=== PATIENT | female | born 1945 | race Caucasian/White ===

== ENCOUNTER 2018-07-11 16:52 | Outpatient (CLI) | payer MEDICARE, SELFPAY ==
[2018-07-11 17:25] LABS: Abs Immature Grans 0.01 k/cumm (0.0-0.09); Absolute Basophil Count 0.04 k/cumm (0.0-0.2); Absolute Lymphocyte Count 2.94 k/cumm (1.2-3.4); Absolute Monocyte Count 0.78 k/cumm (0.11-0.7); Absolute Neutrophil Count 5.89 k/cumm (1.2-6.7); Basophils % 0.4; HCT 36.9 % (36.0-46.0); HGB 12.3 g/dL (12.0-15.5); Immature Grans % 0.1; Lymphocytes % 29.8; Mean Corp. HGB Concentration 33.3 g/dL (32.0-36.0); Mean Corpuscular Hemoglobin 30.6 pg (27.0-33.0); Mean Corpuscular Volume 91.8 fL (80-95); Mean Platelet Volume 9.6 fL (8.0-11.0); Monocytes % 7.9; Neutrophils % 59.8; Platelet Count 288 x1000/uL (130-400); RBC 4.02 m/cumm (4.00-5.20); RBC Distribution Width 12.9 % (11.7-14.6); White Blood Cell Count 9.86 k/cumm (4.4-10.8)
[2018-07-11 17:26] LABS: ALT 17 U/L (12-78); AST 12 U/L (15-37); Albumin 3.6 g/dL (3.4-5.0); Alkaline Phosphatase 90 U/L (46-116); BUN 16 mg/dL (7-18); Bilirubin, Total 0.6 mg/dL (0.2-1.0); CREATININE 0.92 mg/dL (0.55-1.02); Calcium 9.2 mg/dL (8.5-10.1); Chloride 103 mmol/L (98-107); Glucose 104 mg/dL (70-100); Potassium 3.8 mmol/L (3.5-5.1); Sodium 141 mmol/L (136-145); Total Protein 7.2 g/dL (6.4-8.2)
== END 2018-07-11 16:53 ==
PROVIDERS: Visit Provider Internal Medicine
DX: C50.912 Malignant neoplasm of unspecified site of left female breast (principal)
CPT/HCPCS: 36415; 80053; 85025

== ENCOUNTER 2018-07-25 02:52 | Outpatient (RCR) | payer MEDICARE, SELFPAY ==
[2018-07-25] MEDS: Normal Saline Flush 10 ML SYR IVP (07:20)
[2018-07-25 07:34] LABS: Abs Immature Grans 0.03 k/cumm (0.0-0.09); Absolute Basophil Count 0.04 k/cumm (0.0-0.2); Absolute Eosinophil Count 0.26 k/cumm (0.0-0.7); Absolute Lymphocyte Count 1.88 k/cumm (1.2-3.4); Absolute Monocyte Count 0.47 k/cumm (0.11-0.7); Absolute Neutrophil Count 4.85 k/cumm (1.2-6.7); Basophils % 0.5; Eosinophils % 3.5; HCT 33.4 % (36.0-46.0); HGB 11.2 g/dL (12.0-15.5); Immature Grans % 0.4; Mean Corp. HGB Concentration 33.5 g/dL (32.0-36.0); Mean Corpuscular Hemoglobin 30.9 pg (27.0-33.0); Mean Platelet Volume 9.3 fL (8.0-11.0); Monocytes % 6.2; Neutrophils % 64.4; Platelet Count 251 x1000/uL (130-400); RBC 3.63 m/cumm (4.00-5.20); RBC Distribution Width 12.7 % (11.7-14.6); White Blood Cell Count 7.53 k/cumm (4.4-10.8)
[2018-07-25 07:46] LABS: ALT 23 U/L (12-78); AST 14 U/L (15-37); Albumin 3.3 g/dL (3.4-5.0); Alkaline Phosphatase 79 U/L (46-116); Anion Gap 4.2 mmol/L (3-11); BUN 27 mg/dL (7-18); Bilirubin, Total 0.8 mg/dL (0.2-1.0); CO2 28.8 mmol/L (21.0-32.0); CREATININE 0.95 mg/dL (0.55-1.02); Calcium 9.4 mg/dL (8.5-10.1); Chloride 104 mmol/L (98-107); Estimated GFR 58.16 (mL/min/1.73m2); Glucose 143 mg/dL (70-100); Potassium 4.3 mmol/L (3.5-5.1); Sodium 137 mmol/L (136-145); Total Protein 6.5 g/dL (6.4-8.2)
== END 2018-07-28 ==
LOC: INF 02:52
PROVIDERS: Visit Provider Internal Medicine
DX: C50.912 Malignant neoplasm of unspecified site of left female breast (principal); Z45.2 Encounter for adjustment and management of vascular access device
CPT/HCPCS: 36591; 80053; 85025

== ENCOUNTER 2018-08-22 01:32 | Outpatient (RCR) | payer MEDICARE, SELFPAY ==
[2018-08-01] MEDS: Normal Saline Flush 10 ML SYR IVP (09:20)
[2018-08-01 10:06] LABS: Abs Immature Grans 0.02 k/cumm (0.0-0.09); Absolute Basophil Count 0.03 k/cumm (0.0-0.2); Absolute Eosinophil Count 0.12 k/cumm (0.0-0.7); Absolute Lymphocyte Count 1.56 k/cumm (1.2-3.4); Absolute Monocyte Count 0.38 k/cumm (0.11-0.7); Basophils % 0.6; Eosinophils % 2.3; HCT 32.7 % (36.0-46.0); HGB 10.8 g/dL (12.0-15.5); Immature Grans % 0.4; Lymphocytes % 29.4; Mean Corpuscular Hemoglobin 30.5 pg (27.0-33.0); Mean Corpuscular Volume 92.4 fL (80-95); Mean Platelet Volume 9.9 fL (8.0-11.0); Monocytes % 7.2; Neutrophils % 60.1; Platelet Count 274 x1000/uL (130-400); RBC 3.54 m/cumm (4.00-5.20); RBC Distribution Width 13.1 % (11.7-14.6); White Blood Cell Count 5.31 k/cumm (4.4-10.8)
[2018-08-01 10:21] LABS: ALT 20 U/L (12-78); AST 13 U/L (15-37); Albumin 3.2 g/dL (3.4-5.0); Alkaline Phosphatase 70 U/L (46-116); Anion Gap 7.7 mmol/L (3-11); BUN 24 mg/dL (7-18); Bilirubin, Total 0.8 mg/dL (0.2-1.0); CO2 27.3 mmol/L (21.0-32.0); CREATININE 0.93 mg/dL (0.55-1.02); Calcium 9.2 mg/dL (8.5-10.1); Chloride 104 mmol/L (98-107); Glucose 127 mg/dL (70-100); Potassium 4.5 mmol/L (3.5-5.1); Sodium 139 mmol/L (136-145); Total Protein 6.2 g/dL (6.4-8.2)
[2018-08-08] MEDS: Normal Saline Flush 10 ML SYR IVP (11:10)
[2018-08-08 11:34] LABS: Abs Immature Grans 0.04 k/cumm (0.0-0.09); Absolute Basophil Count 0.03 k/cumm (0.0-0.2); Absolute Eosinophil Count 0.11 k/cumm (0.0-0.7); Absolute Lymphocyte Count 1.52 k/cumm (1.2-3.4); Absolute Monocyte Count 0.39 k/cumm (0.11-0.7); Absolute Neutrophil Count 3.31 k/cumm (1.2-6.7); Basophils % 0.6; HCT 32.8 % (36.0-46.0); HGB 10.8 g/dL (12.0-15.5); Immature Grans % 0.7; Lymphocytes % 28.1; Mean Corp. HGB Concentration 32.9 g/dL (32.0-36.0); Mean Corpuscular Hemoglobin 30.5 pg (27.0-33.0); Mean Corpuscular Volume 92.7 fL (80-95); Mean Platelet Volume 9.2 fL (8.0-11.0); Monocytes % 7.2; Neutrophils % 61.4; Platelet Count 311 x1000/uL (130-400); RBC 3.54 m/cumm (4.00-5.20); RBC Distribution Width 13.4 % (11.7-14.6)
[2018-08-08 11:53] LABS: ALT 25 U/L (12-78); AST 14 U/L (15-37); Albumin 3.2 g/dL (3.4-5.0); Alkaline Phosphatase 81 U/L (46-116); Anion Gap 6.3 mmol/L (3-11); BUN 14 mg/dL (7-18); Bilirubin, Total 0.6 mg/dL (0.2-1.0); CO2 29.7 mmol/L (21.0-32.0); Calcium 9.2 mg/dL (8.5-10.1); Chloride 104 mmol/L (98-107); Glucose 109 mg/dL (70-100); Sodium 140 mmol/L (136-145); Total Protein 6.5 g/dL (6.4-8.2)
[2018-08-15] MEDS: Normal Saline Flush 10 ML SYR IVP (11:30)
[2018-08-15 11:51] LABS: Abs Immature Grans 0.03 k/cumm (0.0-0.09); Absolute Basophil Count 0.02 k/cumm (0.0-0.2); Absolute Eosinophil Count 0.11 k/cumm (0.0-0.7); Absolute Lymphocyte Count 1.54 k/cumm (1.2-3.4); Absolute Monocyte Count 0.39 k/cumm (0.11-0.7); Absolute Neutrophil Count 3.25 k/cumm (1.2-6.7); Basophils % 0.4; Eosinophils % 2.1; HCT 31.1 % (36.0-46.0); HGB 10.3 g/dL (12.0-15.5); Immature Grans % 0.6; Lymphocytes % 28.8; Mean Corp. HGB Concentration 33.1 g/dL (32.0-36.0); Mean Corpuscular Hemoglobin 31.1 pg (27.0-33.0); Mean Platelet Volume 9.3 fL (8.0-11.0); Monocytes % 7.3; Neutrophils % 60.8; Platelet Count 273 x1000/uL (130-400); RBC 3.31 m/cumm (4.00-5.20); RBC Distribution Width 13.5 % (11.7-14.6); White Blood Cell Count 5.34 k/cumm (4.4-10.8)
[2018-08-15 12:09] LABS: ALT 25 U/L (12-78); AST 14 U/L (15-37); Albumin 3.1 g/dL (3.4-5.0); Alkaline Phosphatase 67 U/L (46-116); Anion Gap 9.5 mmol/L (3-11); BUN 20 mg/dL (7-18); Bilirubin, Total 0.9 mg/dL (0.2-1.0); CO2 27.5 mmol/L (21.0-32.0); CREATININE 0.93 mg/dL (0.55-1.02); Calcium 9.1 mg/dL (8.5-10.1); Chloride 103 mmol/L (98-107); Glucose 108 mg/dL (70-100); Potassium 3.9 mmol/L (3.5-5.1); Sodium 140 mmol/L (136-145); Total Protein 6.1 g/dL (6.4-8.2)
[2018-08-22] MEDS: Normal Saline Flush 10 ML SYR IVP (11:15)
[2018-08-22 11:36] LABS: Abs Immature Grans 0.05 k/cumm (0.0-0.09); Absolute Basophil Count 0.04 k/cumm (0.0-0.2); Absolute Eosinophil Count 0.11 k/cumm (0.0-0.7); Absolute Lymphocyte Count 1.73 k/cumm (1.2-3.4); Absolute Monocyte Count 0.51 k/cumm (0.11-0.7); Absolute Neutrophil Count 3.53 k/cumm (1.2-6.7); Basophils % 0.7; Eosinophils % 1.8; HCT 31.6 % (36.0-46.0); HGB 10.6 g/dL (12.0-15.5); Immature Grans % 0.8; Mean Corp. HGB Concentration 33.5 g/dL (32.0-36.0); Mean Corpuscular Hemoglobin 31.6 pg (27.0-33.0); Mean Corpuscular Volume 94.3 fL (80-95); Mean Platelet Volume 9.1 fL (8.0-11.0); Monocytes % 8.5; Neutrophils % 59.2; Platelet Count 304 x1000/uL (130-400); RBC 3.35 m/cumm (4.00-5.20); RBC Distribution Width 13.9 % (11.7-14.6); White Blood Cell Count 5.97 k/cumm (4.4-10.8)
[2018-08-22 12:00] LABS: ALT 25 U/L (12-78); AST 14 U/L (15-37); Albumin 3.2 g/dL (3.4-5.0); Alkaline Phosphatase 74 U/L (46-116); Anion Gap 7.4 mmol/L (3-11); BUN 21 mg/dL (7-18); Bilirubin, Total 0.8 mg/dL (0.2-1.0); CO2 28.6 mmol/L (21.0-32.0); CREATININE 0.94 mg/dL (0.55-1.02); Calcium 9.3 mg/dL (8.5-10.1); Chloride 103 mmol/L (98-107); Estimated GFR 58.87 (mL/min/1.73m2); Glucose 96 mg/dL (70-100); Potassium 4.2 mmol/L (3.5-5.1); Sodium 139 mmol/L (136-145); Total Protein 6.3 g/dL (6.4-8.2)
== END 2018-08-27 23:59 | disposition home or self-care (01) ==
LOC: INF 01:32
PROVIDERS: Visit Provider Internal Medicine
DX: C50.912 Malignant neoplasm of unspecified site of left female breast (principal); Z45.2 Encounter for adjustment and management of vascular access device
CPT/HCPCS: 36591; 80053; 85025

== ENCOUNTER 2018-09-26 01:04 | Outpatient (RCR) | payer MEDICARE, SELFPAY ==
[2018-08-29] MEDS: Normal Saline Flush 10 ML SYR IVP (11:15)
[2018-08-29 11:36] LABS: Abs Immature Grans 0.02 k/cumm (0.0-0.09); Absolute Basophil Count 0.04 k/cumm (0.0-0.2); Absolute Lymphocyte Count 1.45 k/cumm (1.2-3.4); Absolute Monocyte Count 0.47 k/cumm (0.11-0.7); Absolute Neutrophil Count 4.27 k/cumm (1.2-6.7); Basophils % 0.6; Eosinophils % 1.6; HCT 31.7 % (36.0-46.0); HGB 10.6 g/dL (12.0-15.5); Immature Grans % 0.3; Lymphocytes % 22.8; Mean Corp. HGB Concentration 33.4 g/dL (32.0-36.0); Mean Corpuscular Hemoglobin 31.5 pg (27.0-33.0); Mean Corpuscular Volume 94.3 fL (80-95); Mean Platelet Volume 9.4 fL (8.0-11.0); Monocytes % 7.4; Neutrophils % 67.3; Platelet Count 294 x1000/uL (130-400); RBC 3.36 m/cumm (4.00-5.20); RBC Distribution Width 14.2 % (11.7-14.6); White Blood Cell Count 6.35 k/cumm (4.4-10.8)
[2018-08-29 11:54] LABS: ALT 25 U/L (12-78); AST 13 U/L (15-37); Albumin 3.2 g/dL (3.4-5.0); Alkaline Phosphatase 75 U/L (46-116); BUN 20 mg/dL (7-18); Bilirubin, Total 0.7 mg/dL (0.2-1.0); CREATININE 1.05 mg/dL (0.55-1.02); Calcium 9.1 mg/dL (8.5-10.1); Chloride 104 mmol/L (98-107); Estimated GFR 51.81 (mL/min/1.73m2); Glucose 90 mg/dL (70-100); Potassium 4.2 mmol/L (3.5-5.1); Sodium 140 mmol/L (136-145); Total Protein 6.3 g/dL (6.4-8.2)
[2018-09-05] MEDS: Normal Saline Flush 10 ML SYR IVP (10:10)
[2018-09-05 10:37] LABS: Abs Immature Grans 0.06 k/cumm (0.0-0.09); Absolute Basophil Count 0.04 k/cumm (0.0-0.2); Absolute Eosinophil Count 0.12 k/cumm (0.0-0.7); Absolute Lymphocyte Count 1.72 k/cumm (1.2-3.4); Absolute Monocyte Count 0.49 k/cumm (0.11-0.7); Absolute Neutrophil Count 3.93 k/cumm (1.2-6.7); Basophils % 0.6; Eosinophils % 1.9; HCT 30.5 % (36.0-46.0); HGB 10.2 g/dL (12.0-15.5); Immature Grans % 0.9; Mean Corp. HGB Concentration 33.4 g/dL (32.0-36.0); Mean Corpuscular Hemoglobin 31.9 pg (27.0-33.0); Mean Corpuscular Volume 95.3 fL (80-95); Mean Platelet Volume 9.1 fL (8.0-11.0); Monocytes % 7.7; Neutrophils % 61.9; Platelet Count 275 x1000/uL (130-400); RBC Distribution Width 14.6 % (11.7-14.6); White Blood Cell Count 6.36 k/cumm (4.4-10.8)
[2018-09-05 10:44] LABS: ALT 23 U/L (12-78); AST 12 U/L (15-37); Alkaline Phosphatase 65 U/L (46-116); Anion Gap 7.9 mmol/L (3-11); BUN 22 mg/dL (7-18); Bilirubin, Total 0.6 mg/dL (0.2-1.0); CO2 28.1 mmol/L (21.0-32.0); CREATININE 0.85 mg/dL (0.55-1.02); Calcium 9.2 mg/dL (8.5-10.1); Chloride 103 mmol/L (98-107); Glucose 118 mg/dL (70-100); Potassium 4.2 mmol/L (3.5-5.1); Sodium 139 mmol/L (136-145)
[2018-09-12] MEDS: Normal Saline Flush 10 ML SYR IVP (10:25)
[2018-09-12 11:00] LABS: Abs Immature Grans 0.04 k/cumm (0.0-0.09); Absolute Basophil Count 0.03 k/cumm (0.0-0.2); Absolute Eosinophil Count 0.11 k/cumm (0.0-0.7); Absolute Lymphocyte Count 1.71 k/cumm (1.2-3.4); Absolute Neutrophil Count 4.08 k/cumm (1.2-6.7); Basophils % 0.5; Eosinophils % 1.7; HGB 10.4 g/dL (12.0-15.5); Immature Grans % 0.6; Mean Corp. HGB Concentration 33.5 g/dL (32.0-36.0); Mean Corpuscular Hemoglobin 31.8 pg (27.0-33.0); Mean Corpuscular Volume 94.8 fL (80-95); Mean Platelet Volume 9.4 fL (8.0-11.0); Monocytes % 9.1; Neutrophils % 62.1; Platelet Count 283 x1000/uL (130-400); RBC 3.27 m/cumm (4.00-5.20); RBC Distribution Width 14.9 % (11.7-14.6); White Blood Cell Count 6.57 k/cumm (4.4-10.8)
[2018-09-12 11:12] LABS: ALT 26 U/L (12-78); AST 13 U/L (15-37); Albumin 3.3 g/dL (3.4-5.0); Alkaline Phosphatase 66 U/L (46-116); Anion Gap 8.8 mmol/L (3-11); BUN 19 mg/dL (7-18); Bilirubin, Total 0.9 mg/dL (0.2-1.0); CO2 26.2 mmol/L (21.0-32.0); CREATININE 0.84 mg/dL (0.55-1.02); Calcium 9.3 mg/dL (8.5-10.1); Chloride 100 mmol/L (98-107); Glucose 94 mg/dL (70-100); Potassium 4.2 mmol/L (3.5-5.1); Sodium 135 mmol/L (136-145); Total Protein 6.4 g/dL (6.4-8.2)
[2018-09-19] MEDS: Normal Saline Flush 10 ML SYR IVP (10:25)
[2018-09-19 10:44] LABS: Abs Immature Grans 0.02 k/cumm (0.0-0.09); Absolute Basophil Count 0.03 k/cumm (0.0-0.2); Absolute Eosinophil Count 0.08 k/cumm (0.0-0.7); Absolute Lymphocyte Count 1.47 k/cumm (1.2-3.4); Absolute Monocyte Count 0.46 k/cumm (0.11-0.7); Absolute Neutrophil Count 3.06 k/cumm (1.2-6.7); Basophils % 0.6; Eosinophils % 1.6; HCT 30.8 % (36.0-46.0); HGB 10.3 g/dL (12.0-15.5); Immature Grans % 0.4; Lymphocytes % 28.7; Mean Corp. HGB Concentration 33.4 g/dL (32.0-36.0); Mean Corpuscular Hemoglobin 31.9 pg (27.0-33.0); Mean Corpuscular Volume 95.4 fL (80-95); Mean Platelet Volume 9.1 fL (8.0-11.0); Neutrophils % 59.7; Platelet Count 286 x1000/uL (130-400); RBC 3.23 m/cumm (4.00-5.20); RBC Distribution Width 14.9 % (11.7-14.6); White Blood Cell Count 5.12 k/cumm (4.4-10.8)
[2018-09-19 11:04] LABS: ALT 25 U/L (12-78); AST 13 U/L (15-37); Albumin 3.2 g/dL (3.4-5.0); Alkaline Phosphatase 65 U/L (46-116); Anion Gap 9.2 mmol/L (3-11); BUN 20 mg/dL (7-18); Bilirubin, Total 0.8 mg/dL (0.2-1.0); CO2 28.8 mmol/L (21.0-32.0); CREATININE 0.89 mg/dL (0.55-1.02); Calcium 9.4 mg/dL (8.5-10.1); Chloride 100 mmol/L (98-107); Glucose 95 mg/dL (70-100); Sodium 138 mmol/L (136-145); Total Protein 6.1 g/dL (6.4-8.2)
[2018-09-26] MEDS: Normal Saline Flush 10 ML SYR IVP (10:20)
[2018-09-26 10:41] LABS: Abs Immature Grans 0.03 k/cumm (0.0-0.09); Absolute Basophil Count 0.03 k/cumm (0.0-0.2); Absolute Eosinophil Count 0.08 k/cumm (0.0-0.7); Absolute Lymphocyte Count 1.38 k/cumm (1.2-3.4); Absolute Monocyte Count 0.45 k/cumm (0.11-0.7); Absolute Neutrophil Count 3.46 k/cumm (1.2-6.7); Basophils % 0.6; Eosinophils % 1.5; HGB 10.2 g/dL (12.0-15.5); Immature Grans % 0.6; Lymphocytes % 25.4; Mean Corp. HGB Concentration 32.9 g/dL (32.0-36.0); Mean Corpuscular Hemoglobin 31.6 pg (27.0-33.0); Mean Platelet Volume 9.1 fL (8.0-11.0); Monocytes % 8.3; Neutrophils % 63.6; Platelet Count 285 x1000/uL (130-400); RBC 3.23 m/cumm (4.00-5.20); RBC Distribution Width 15.2 % (11.7-14.6); White Blood Cell Count 5.43 k/cumm (4.4-10.8)
[2018-09-26 10:54] LABS: ALT 23 U/L (12-78); AST 12 U/L (15-37); Albumin 3.1 g/dL (3.4-5.0); Alkaline Phosphatase 66 U/L (46-116); BUN 21 mg/dL (7-18); Bilirubin, Total 0.7 mg/dL (0.2-1.0); Calcium 9.2 mg/dL (8.5-10.1); Chloride 103 mmol/L (98-107); Estimated GFR 54.81 (mL/min/1.73m2); Glucose 124 mg/dL (70-100); Sodium 140 mmol/L (136-145); Total Protein 6.1 g/dL (6.4-8.2)
== END 2018-09-27 23:59 | disposition home or self-care (01) ==
LOC: INF 01:04
PROVIDERS: Visit Provider Internal Medicine
DX: C50.912 Malignant neoplasm of unspecified site of left female breast (principal); Z45.2 Encounter for adjustment and management of vascular access device
CPT/HCPCS: 36591; 80053; 85025

== ENCOUNTER 2018-10-17 01:50 | Outpatient (RCR) | payer MEDICARE, SELFPAY ==
[2018-10-03] MEDS: Normal Saline Flush 10 ML SYR IVP (10:30)
[2018-10-03 10:44] LABS: Abs Immature Grans 0.04 k/cumm (0.0-0.09); Absolute Basophil Count 0.02 k/cumm (0.0-0.2); Absolute Eosinophil Count 0.08 k/cumm (0.0-0.7); Absolute Lymphocyte Count 1.31 k/cumm (1.2-3.4); Absolute Neutrophil Count 3.36 k/cumm (1.2-6.7); Basophils % 0.4; Eosinophils % 1.5; HCT 29.7 % (36.0-46.0); HGB 9.9 g/dL (12.0-15.5); Immature Grans % 0.8; Lymphocytes % 24.7; Mean Corp. HGB Concentration 33.3 g/dL (32.0-36.0); Mean Corpuscular Hemoglobin 32.1 pg (27.0-33.0); Mean Corpuscular Volume 96.4 fL (80-95); Mean Platelet Volume 8.9 fL (8.0-11.0); Monocytes % 9.4; Neutrophils % 63.2; Platelet Count 291 x1000/uL (130-400); RBC 3.08 m/cumm (4.00-5.20); White Blood Cell Count 5.31 k/cumm (4.4-10.8)
[2018-10-03 10:53] LABS: ALT 27 U/L (12-78); AST 12 U/L (15-37); Albumin 3.1 g/dL (3.4-5.0); Alkaline Phosphatase 66 U/L (46-116); Anion Gap 8.8 mmol/L (3-11); BUN 18 mg/dL (7-18); Bilirubin, Total 0.9 mg/dL (0.2-1.0); CO2 27.2 mmol/L (21.0-32.0); Calcium 9.1 mg/dL (8.5-10.1); Chloride 101 mmol/L (98-107); Glucose 138 mg/dL (70-100); Potassium 4.1 mmol/L (3.5-5.1); Sodium 137 mmol/L (136-145); Total Protein 6.1 g/dL (6.4-8.2)
[2018-10-17] MEDS: Normal Saline Flush 10 ML SYR IVP (08:25)
[2018-10-17 08:43] LABS: Abs Immature Grans 0.06 k/cumm (0.0-0.09); Absolute Basophil Count 0.04 k/cumm (0.0-0.2); Absolute Eosinophil Count 0.12 k/cumm (0.0-0.7); Absolute Lymphocyte Count 1.27 k/cumm (1.2-3.4); Absolute Monocyte Count 0.78 k/cumm (0.11-0.7); Absolute Neutrophil Count 4.06 k/cumm (1.2-6.7); Basophils % 0.6; Eosinophils % 1.9; HCT 31.7 % (36.0-46.0); HGB 10.3 g/dL (12.0-15.5); Immature Grans % 0.9; Lymphocytes % 20.1; Mean Corp. HGB Concentration 32.5 g/dL (32.0-36.0); Mean Corpuscular Hemoglobin 31.7 pg (27.0-33.0); Mean Corpuscular Volume 97.5 fL (80-95); Mean Platelet Volume 8.8 fL (8.0-11.0); Monocytes % 12.3; Neutrophils % 64.2; Platelet Count 280 x1000/uL (130-400); RBC 3.25 m/cumm (4.00-5.20); RBC Distribution Width 14.9 % (11.7-14.6); White Blood Cell Count 6.33 k/cumm (4.4-10.8)
[2018-10-17 08:52] LABS: ALT 21 U/L (12-78); AST 12 U/L (15-37); Albumin 2.9 g/dL (3.4-5.0); Alkaline Phosphatase 77 U/L (46-116); Anion Gap 8.7 mmol/L (3-11); BUN 14 mg/dL (7-18); Bilirubin, Total 0.6 mg/dL (0.2-1.0); CO2 26.3 mmol/L (21.0-32.0); CREATININE 0.97 mg/dL (0.55-1.02); Calcium 9.1 mg/dL (8.5-10.1); Chloride 105 mmol/L (98-107); Estimated GFR 56.77 (mL/min/1.73m2); Glucose 151 mg/dL (70-100); Potassium 3.8 mmol/L (3.5-5.1); Sodium 140 mmol/L (136-145); Total Protein 5.9 g/dL (6.4-8.2)
== END 2018-10-27 23:59 | disposition home or self-care (01) ==
LOC: INF 01:50
PROVIDERS: Visit Provider Internal Medicine
DX: C50.912 Malignant neoplasm of unspecified site of left female breast (principal); Z45.2 Encounter for adjustment and management of vascular access device
CPT/HCPCS: 36591; 80053; 85025

== ENCOUNTER 2018-11-07 01:49 | Outpatient (RCR) | payer MEDICARE, SELFPAY ==
[2018-11-07] MEDS: Normal Saline Flush 10 ML SYR IVP (09:02)
[2018-11-07 09:15] LABS: Abs Immature Grans 0.02 k/cumm (0.0-0.09); Absolute Basophil Count 0.03 k/cumm (0.0-0.2); Absolute Eosinophil Count 0.22 k/cumm (0.0-0.7); Absolute Lymphocyte Count 1.65 k/cumm (1.2-3.4); Absolute Monocyte Count 0.58 k/cumm (0.11-0.7); Absolute Neutrophil Count 4.67 k/cumm (1.2-6.7); Basophils % 0.4; Eosinophils % 3.1; HGB 11.1 g/dL (12.0-15.5); Immature Grans % 0.3; Mean Corp. HGB Concentration 32.6 g/dL (32.0-36.0); Mean Corpuscular Hemoglobin 31.6 pg (27.0-33.0); Mean Corpuscular Volume 96.9 fL (80-95); Mean Platelet Volume 9.2 fL (8.0-11.0); Monocytes % 8.1; Neutrophils % 65.1; Platelet Count 274 x1000/uL (130-400); RBC 3.51 m/cumm (4.00-5.20); RBC Distribution Width 13.4 % (11.7-14.6); White Blood Cell Count 7.17 k/cumm (4.4-10.8)
[2018-11-07 09:26] LABS: ALT 22 U/L (12-78); AST 15 U/L (15-37); Albumin 3.2 g/dL (3.4-5.0); Alkaline Phosphatase 81 U/L (46-116); Anion Gap 8.8 mmol/L (3-11); BUN 17 mg/dL (7-18); Bilirubin, Total 1.1 mg/dL (0.2-1.0); CO2 27.2 mmol/L (21.0-32.0); CREATININE 0.94 mg/dL (0.55-1.02); Calcium 9.6 mg/dL (8.5-10.1); Chloride 104 mmol/L (98-107); Estimated GFR 58.87 (mL/min/1.73m2); Glucose 94 mg/dL (70-100); Sodium 140 mmol/L (136-145); Total Protein 6.5 g/dL (6.4-8.2)
== END 2018-11-27 23:59 | disposition home or self-care (01) ==
LOC: INF 01:49
PROVIDERS: Visit Provider Internal Medicine
DX: C50.912 Malignant neoplasm of unspecified site of left female breast (principal); Z45.2 Encounter for adjustment and management of vascular access device
CPT/HCPCS: 36591; 80053; 85025

== ENCOUNTER 2018-12-19 02:07 | Outpatient (RCR) | payer MEDICARE, SELFPAY ==
[2018-11-29] MEDS: Normal Saline Flush 10 ML SYR IVP (08:32)
[2018-11-29 08:37] LABS: Abs Immature Grans 0.01 k/cumm (0.0-0.09); Absolute Basophil Count 0.02 k/cumm (0.0-0.2); Absolute Eosinophil Count 0.17 k/cumm (0.0-0.7); Absolute Lymphocyte Count 1.37 k/cumm (1.2-3.4); Absolute Monocyte Count 0.69 k/cumm (0.11-0.7); Absolute Neutrophil Count 5.28 k/cumm (1.2-6.7); Basophils % 0.3; Eosinophils % 2.3; HCT 33.7 % (36.0-46.0); HGB 11.1 g/dL (12.0-15.5); Immature Grans % 0.1; Lymphocytes % 18.2; Mean Corp. HGB Concentration 32.9 g/dL (32.0-36.0); Mean Corpuscular Hemoglobin 31.6 pg (27.0-33.0); Mean Platelet Volume 9.8 fL (8.0-11.0); Monocytes % 9.2; Neutrophils % 69.9; Platelet Count 234 x1000/uL (130-400); RBC 3.51 m/cumm (4.00-5.20); RBC Distribution Width 12.6 % (11.7-14.6); White Blood Cell Count 7.54 k/cumm (4.4-10.8)
[2018-11-29 08:51] LABS: ALT 17 U/L (12-78); AST 16 U/L (15-37); Albumin 3.2 g/dL (3.4-5.0); Alkaline Phosphatase 84 U/L (46-116); Anion Gap 8.4 mmol/L (3-11); BUN 23 mg/dL (7-18); Bilirubin, Total 0.7 mg/dL (0.2-1.0); CO2 28.6 mmol/L (21.0-32.0); CREATININE 0.96 mg/dL (0.55-1.02); Calcium 9.5 mg/dL (8.5-10.1); Chloride 104 mmol/L (98-107); Estimated GFR 57.46 (mL/min/1.73m2); Glucose 120 mg/dL (70-100); Potassium 3.9 mmol/L (3.5-5.1); Sodium 141 mmol/L (136-145); Total Protein 6.4 g/dL (6.4-8.2)
[2018-12-19] MEDS: Normal Saline Flush 10 ML SYR IVP (08:10)
[2018-12-19 08:35] LABS: Abs Immature Grans 0.01 k/cumm (0.0-0.09); Absolute Basophil Count 0.03 k/cumm (0.0-0.2); Absolute Eosinophil Count 0.15 k/cumm (0.0-0.7); Absolute Lymphocyte Count 1.49 k/cumm (1.2-3.4); Absolute Monocyte Count 0.54 k/cumm (0.11-0.7); Absolute Neutrophil Count 4.91 k/cumm (1.2-6.7); Basophils % 0.4; Eosinophils % 2.1; HCT 36.4 % (36.0-46.0); HGB 11.7 g/dL (12.0-15.5); Immature Grans % 0.1; Lymphocytes % 20.9; Mean Corp. HGB Concentration 32.1 g/dL (32.0-36.0); Mean Corpuscular Hemoglobin 29.9 pg (27.0-33.0); Mean Corpuscular Volume 93.1 fL (80-95); Mean Platelet Volume 9.5 fL (8.0-11.0); Monocytes % 7.6; Neutrophils % 68.9; Platelet Count 250 x1000/uL (130-400); RBC 3.91 m/cumm (4.00-5.20); RBC Distribution Width 12.6 % (11.7-14.6); White Blood Cell Count 7.13 k/cumm (4.4-10.8)
[2018-12-19 08:48] LABS: ALT 21 U/L (12-78); AST 13 U/L (15-37); Albumin 3.3 g/dL (3.4-5.0); Alkaline Phosphatase 92 U/L (46-116); Anion Gap 9.3 mmol/L (3-11); BUN 26 mg/dL (7-18); Bilirubin, Total 0.6 mg/dL (0.2-1.0); CO2 28.7 mmol/L (21.0-32.0); CREATININE 0.95 mg/dL (0.55-1.02); Calcium 9.8 mg/dL (8.5-10.1); Chloride 103 mmol/L (98-107); Estimated GFR 57.99 (mL/min/1.73m2); Glucose 124 mg/dL (70-100); Potassium 4.1 mmol/L (3.5-5.1); Sodium 141 mmol/L (136-145); Total Protein 6.8 g/dL (6.4-8.2)
== END 2018-12-28 23:59 | disposition home or self-care (01) ==
LOC: INF 02:07
PROVIDERS: Visit Provider Internal Medicine
DX: C50.912 Malignant neoplasm of unspecified site of left female breast (principal); Z45.2 Encounter for adjustment and management of vascular access device
CPT/HCPCS: 36591; 80053; 85025

== ENCOUNTER 2019-01-09 12:06 | Outpatient (RCR) | payer MEDICARE, SELFPAY ==
[2019-01-09] MEDS: Normal Saline Flush 10 ML SYR IVP (12:00)
[2019-01-09 12:25] LABS: Abs Immature Grans 0.01 k/cumm (0.0-0.09); Absolute Basophil Count 0.03 k/cumm (0.0-0.2); Absolute Lymphocyte Count 1.59 k/cumm (1.2-3.4); Absolute Monocyte Count 0.57 k/cumm (0.11-0.7); Absolute Neutrophil Count 5.67 k/cumm (1.2-6.7); Basophils % 0.4; Eosinophils % 1.3; HCT 35.2 % (36.0-46.0); HGB 11.6 g/dL (12.0-15.5); Immature Grans % 0.1; Lymphocytes % 19.9; Mean Corpuscular Hemoglobin 30.1 pg (27.0-33.0); Mean Corpuscular Volume 91.4 fL (80-95); Mean Platelet Volume 9.5 fL (8.0-11.0); Monocytes % 7.2; Neutrophils % 71.1; Platelet Count 236 x1000/uL (130-400); RBC 3.85 m/cumm (4.00-5.20); RBC Distribution Width 12.8 % (11.7-14.6); White Blood Cell Count 7.97 k/cumm (4.4-10.8)
[2019-01-09 12:33] LABS: ALT 20 U/L (12-78); AST 14 U/L (15-37); Albumin 3.2 g/dL (3.4-5.0); Alkaline Phosphatase 102 U/L (46-116); Anion Gap 9.2 mmol/L (3-11); BUN 25 mg/dL (7-18); Bilirubin, Total 0.7 mg/dL (0.2-1.0); CO2 27.8 mmol/L (21.0-32.0); CREATININE 1.06 mg/dL (0.55-1.02); Calcium 9.6 mg/dL (8.5-10.1); Chloride 101 mmol/L (98-107); Glucose 116 mg/dL (70-100); Sodium 138 mmol/L (136-145)
== END 2019-01-25 23:59 | disposition home or self-care (01) ==
LOC: INF 12:06
PROVIDERS: Visit Provider Internal Medicine
DX: C50.912 Malignant neoplasm of unspecified site of left female breast (principal); Z45.2 Encounter for adjustment and management of vascular access device
CPT/HCPCS: 36591; 80053; 85025

== ENCOUNTER 2019-02-20 01:20 | Outpatient (RCR) | payer MEDICARE, SELFPAY ==
[2019-01-30] MEDS: Normal Saline Flush 10 ML SYR IVP (09:30)
[2019-01-30 09:47] LABS: Abs Immature Grans 0.01 k/cumm (0.0-0.09); Absolute Basophil Count 0.02 k/cumm (0.0-0.2); Absolute Eosinophil Count 0.18 k/cumm (0.0-0.7); Absolute Lymphocyte Count 1.68 k/cumm (1.2-3.4); Absolute Monocyte Count 0.59 k/cumm (0.11-0.7); Absolute Neutrophil Count 4.98 k/cumm (1.2-6.7); Basophils % 0.3; Eosinophils % 2.4; HCT 35.3 % (36.0-46.0); HGB 11.7 g/dL (12.0-15.5); Immature Grans % 0.1; Lymphocytes % 22.5; Mean Corp. HGB Concentration 33.1 g/dL (32.0-36.0); Mean Corpuscular Hemoglobin 29.8 pg (27.0-33.0); Mean Corpuscular Volume 89.8 fL (80-95); Mean Platelet Volume 9.1 fL (8.0-11.0); Monocytes % 7.9; Neutrophils % 66.8; Platelet Count 234 x1000/uL (130-400); RBC 3.93 m/cumm (4.00-5.20); RBC Distribution Width 13.2 % (11.7-14.6); White Blood Cell Count 7.46 k/cumm (4.4-10.8)
[2019-01-30 10:09] LABS: ALT 18 U/L (12-78); AST 14 U/L (15-37); Albumin 3.2 g/dL (3.4-5.0); Alkaline Phosphatase 96 U/L (46-116); Anion Gap 8.2 mmol/L (3-11); BUN 27 mg/dL (7-18); Bilirubin, Total 0.9 mg/dL (0.2-1.0); CO2 28.8 mmol/L (21.0-32.0); CREATININE 1.03 mg/dL (0.55-1.02); Calcium 9.7 mg/dL (8.5-10.1); Chloride 102 mmol/L (98-107); Estimated GFR 52.82 (mL/min/1.73m2); Glucose 182 mg/dL (70-100); Potassium 4.1 mmol/L (3.5-5.1); Sodium 139 mmol/L (136-145); Total Protein 6.6 g/dL (6.4-8.2)
[2019-02-20] MEDS: Normal Saline Flush 10 ML SYR IVP (08:55)
[2019-02-20 09:36] LABS: Abs Immature Grans 0.01 k/cumm (0.0-0.09); Absolute Basophil Count 0.03 k/cumm (0.0-0.2); Absolute Eosinophil Count 0.14 k/cumm (0.0-0.7); Absolute Lymphocyte Count 1.36 k/cumm (1.2-3.4); Absolute Monocyte Count 0.48 k/cumm (0.11-0.7); Basophils % 0.4; Eosinophils % 2.1; HCT 34.6 % (36.0-46.0); HGB 11.6 g/dL (12.0-15.5); Immature Grans % 0.1; Lymphocytes % 20.2; Mean Corp. HGB Concentration 33.5 g/dL (32.0-36.0); Mean Corpuscular Hemoglobin 30.2 pg (27.0-33.0); Mean Corpuscular Volume 90.1 fL (80-95); Mean Platelet Volume 9.9 fL (8.0-11.0); Monocytes % 7.1; Neutrophils % 70.1; Platelet Count 247 x1000/uL (130-400); RBC 3.84 m/cumm (4.00-5.20); RBC Distribution Width 13.4 % (11.7-14.6); White Blood Cell Count 6.72 k/cumm (4.4-10.8)
[2019-02-20 09:48] LABS: ALT 27 U/L (12-78); AST 16 U/L (15-37); Albumin 3.1 g/dL (3.4-5.0); Alkaline Phosphatase 97 U/L (46-116); Anion Gap 7.3 mmol/L (3-11); BUN 18 mg/dL (7-18); Bilirubin, Total 0.9 mg/dL (0.2-1.0); CO2 28.7 mmol/L (21.0-32.0); Chloride 103 mmol/L (98-107); Glucose 142 mg/dL (70-100); Potassium 3.8 mmol/L (3.5-5.1); Sodium 139 mmol/L (136-145); Total Protein 6.7 g/dL (6.4-8.2)
== END 2019-02-25 23:59 | disposition home or self-care (01) ==
LOC: INF 01:20
PROVIDERS: Visit Provider Internal Medicine
DX: C50.912 Malignant neoplasm of unspecified site of left female breast (principal); Z45.2 Encounter for adjustment and management of vascular access device
CPT/HCPCS: 36591; 80053; 85025

== ENCOUNTER 2019-03-13 01:22 | Outpatient (RCR) | payer MEDICARE, SELFPAY ==
[2019-03-13] MEDS: Normal Saline Flush 10 ML SYR IVP (10:25)
[2019-03-13 10:51] LABS: Abs Immature Grans 0.02 k/cumm (0.0-0.09); Absolute Basophil Count 0.03 k/cumm (0.0-0.2); Absolute Eosinophil Count 0.25 k/cumm (0.0-0.7); Absolute Lymphocyte Count 1.86 k/cumm (1.2-3.4); Absolute Monocyte Count 0.54 k/cumm (0.11-0.7); Absolute Neutrophil Count 4.78 k/cumm (1.2-6.7); Basophils % 0.4; Eosinophils % 3.3; HCT 35.1 % (36.0-46.0); HGB 11.7 g/dL (12.0-15.5); Immature Grans % 0.3; Lymphocytes % 24.9; Mean Corp. HGB Concentration 33.3 g/dL (32.0-36.0); Mean Corpuscular Hemoglobin 30.5 pg (27.0-33.0); Mean Corpuscular Volume 91.6 fL (80-95); Mean Platelet Volume 9.3 fL (8.0-11.0); Monocytes % 7.2; Neutrophils % 63.9; Platelet Count 247 x1000/uL (130-400); RBC 3.83 m/cumm (4.00-5.20); RBC Distribution Width 13.5 % (11.7-14.6); White Blood Cell Count 7.48 k/cumm (4.4-10.8)
[2019-03-13 10:59] LABS: ALT 23 U/L (12-78); AST 16 U/L (15-37); Albumin 3.1 g/dL (3.4-5.0); Alkaline Phosphatase 94 U/L (46-116); Anion Gap 8.1 mmol/L (3-11); BUN 20 mg/dL (7-18); CO2 27.9 mmol/L (21.0-32.0); CREATININE 0.89 mg/dL (0.55-1.02); Calcium 9.2 mg/dL (8.5-10.1); Chloride 101 mmol/L (98-107); Glucose 134 mg/dL (70-100); Potassium 4.1 mmol/L (3.5-5.1); Sodium 137 mmol/L (136-145); Total Protein 6.6 g/dL (6.4-8.2)
== END 2019-03-27 23:59 | disposition home or self-care (01) ==
LOC: INF 01:22
PROVIDERS: Visit Provider Internal Medicine
DX: C50.912 Malignant neoplasm of unspecified site of left female breast (principal); Z45.2 Encounter for adjustment and management of vascular access device
CPT/HCPCS: 36591; 80053; 85025

== ENCOUNTER 2019-04-24 01:21 | Outpatient (RCR) | payer MEDICARE, SELFPAY ==
[2019-04-03] MEDS: Normal Saline Flush 10 ML SYR IVP (09:44)
[2019-04-03 09:52] LABS: Abs Immature Grans 0.02 k/cumm (0.0-0.09); Absolute Basophil Count 0.03 k/cumm (0.0-0.2); Absolute Eosinophil Count 0.21 k/cumm (0.0-0.7); Absolute Lymphocyte Count 1.87 k/cumm (1.2-3.4); Absolute Monocyte Count 0.63 k/cumm (0.11-0.7); Basophils % 0.4; Eosinophils % 2.8; HCT 34.6 % (36.0-46.0); HGB 11.6 g/dL (12.0-15.5); Immature Grans % 0.3; Lymphocytes % 24.7; Mean Corp. HGB Concentration 33.5 g/dL (32.0-36.0); Mean Corpuscular Hemoglobin 30.8 pg (27.0-33.0); Mean Corpuscular Volume 91.8 fL (80-95); Mean Platelet Volume 9.7 fL (8.0-11.0); Monocytes % 8.3; Neutrophils % 63.5; Platelet Count 232 x1000/uL (130-400); RBC 3.77 m/cumm (4.00-5.20); RBC Distribution Width 13.4 % (11.7-14.6); White Blood Cell Count 7.56 k/cumm (4.4-10.8)
[2019-04-03 10:05] LABS: ALT 26 U/L (12-78); AST 14 U/L (15-37); Alkaline Phosphatase 89 U/L (46-116); BUN 26 mg/dL (7-18); Bilirubin, Total 0.8 mg/dL (0.2-1.0); CREATININE 0.93 mg/dL (0.55-1.02); Calcium 9.2 mg/dL (8.5-10.1); Chloride 101 mmol/L (98-107); Estimated GFR 59.43 (mL/min/1.73m2); Glucose 182 mg/dL (70-100); Potassium 3.8 mmol/L (3.5-5.1); Sodium 137 mmol/L (136-145); Total Protein 6.4 g/dL (6.4-8.2)
[2019-04-24] MEDS: Normal Saline Flush 10 ML SYR IVP (10:14)
[2019-04-24 10:21] LABS: Abs Immature Grans 0.02 k/cumm (0.0-0.09); Absolute Basophil Count 0.03 k/cumm (0.0-0.2); Absolute Eosinophil Count 0.25 k/cumm (0.0-0.7); Absolute Lymphocyte Count 1.79 k/cumm (1.2-3.4); Absolute Monocyte Count 0.67 k/cumm (0.11-0.7); Absolute Neutrophil Count 5.14 k/cumm (1.2-6.7); Basophils % 0.4; Eosinophils % 3.2; HCT 35.3 % (36.0-46.0); HGB 11.8 g/dL (12.0-15.5); Immature Grans % 0.3; Lymphocytes % 22.7; Mean Corp. HGB Concentration 33.4 g/dL (32.0-36.0); Mean Corpuscular Hemoglobin 30.7 pg (27.0-33.0); Mean Corpuscular Volume 91.9 fL (80-95); Mean Platelet Volume 9.5 fL (8.0-11.0); Monocytes % 8.5; Neutrophils % 64.9; Platelet Count 251 x1000/uL (130-400); RBC 3.84 m/cumm (4.00-5.20); RBC Distribution Width 13.3 % (11.7-14.6)
[2019-04-24 10:30] LABS: ALT 23 U/L (12-78); AST 13 U/L (15-37); Albumin 3.1 g/dL (3.4-5.0); Alkaline Phosphatase 99 U/L (46-116); Anion Gap 9.4 mmol/L (3-11); BUN 26 mg/dL (7-18); Bilirubin, Total 0.8 mg/dL (0.2-1.0); CO2 26.6 mmol/L (21.0-32.0); CREATININE 0.93 mg/dL (0.55-1.02); Calcium 9.4 mg/dL (8.5-10.1); Chloride 102 mmol/L (98-107); Estimated GFR 59.43 (mL/min/1.73m2); Glucose 165 mg/dL (70-100); Potassium 3.9 mmol/L (3.5-5.1); Sodium 138 mmol/L (136-145); Total Protein 6.6 g/dL (6.4-8.2)
== END 2019-04-27 23:59 | disposition home or self-care (01) ==
LOC: INF 01:21
PROVIDERS: Visit Provider Internal Medicine
DX: C50.912 Malignant neoplasm of unspecified site of left female breast (principal); Z45.2 Encounter for adjustment and management of vascular access device
CPT/HCPCS: 36591; 80053; 85025

== ENCOUNTER 2019-05-15 01:29 | Outpatient (RCR) | payer MEDICARE, SELFPAY ==
[2019-05-15] MEDS: Normal Saline Flush 10 ML SYR IVP (10:56)
[2019-05-15 11:04] LABS: Abs Immature Grans 0.02 k/cumm (0.0-0.09); Absolute Basophil Count 0.03 k/cumm (0.0-0.2); Absolute Lymphocyte Count 2.08 k/cumm (1.2-3.4); Absolute Monocyte Count 0.79 k/cumm (0.11-0.7); Absolute Neutrophil Count 5.42 k/cumm (1.2-6.7); Basophils % 0.3; Eosinophils % 3.5; HCT 35.5 % (36.0-46.0); HGB 11.8 g/dL (12.0-15.5); Immature Grans % 0.2; Lymphocytes % 24.1; Mean Corp. HGB Concentration 33.2 g/dL (32.0-36.0); Mean Corpuscular Hemoglobin 30.7 pg (27.0-33.0); Mean Corpuscular Volume 92.4 fL (80-95); Mean Platelet Volume 9.4 fL (8.0-11.0); Monocytes % 9.1; Neutrophils % 62.8; Platelet Count 255 x1000/uL (130-400); RBC 3.84 m/cumm (4.00-5.20); White Blood Cell Count 8.64 k/cumm (4.4-10.8)
[2019-05-15 11:16] LABS: ALT 27 U/L (12-78); AST 15 U/L (15-37); Albumin 3.2 g/dL (3.4-5.0); Alkaline Phosphatase 93 U/L (46-116); Anion Gap 9.5 mmol/L (3-11); BUN 27 mg/dL (7-18); Bilirubin, Total 0.7 mg/dL (0.2-1.0); CO2 26.5 mmol/L (21.0-32.0); CREATININE 0.92 mg/dL (0.55-1.02); Calcium 9.4 mg/dL (8.5-10.1); Chloride 102 mmol/L (98-107); Glucose 139 mg/dL (70-100); Potassium 4.1 mmol/L (3.5-5.1); Sodium 138 mmol/L (136-145); Total Protein 6.7 g/dL (6.4-8.2)
== END 2019-05-27 23:59 | disposition home or self-care (01) ==
LOC: INF 01:29
PROVIDERS: Visit Provider Internal Medicine
DX: C50.912 Malignant neoplasm of unspecified site of left female breast (principal); Z45.2 Encounter for adjustment and management of vascular access device
CPT/HCPCS: 36591; 80053; 85025

== ENCOUNTER 2019-06-05 01:43 | Outpatient (RCR) | payer MEDICARE, SELFPAY ==
[2019-06-05] MEDS: Normal Saline Flush 10 ML SYR IVP (08:20)
[2019-06-05 08:36] LABS: Abs Immature Grans 0.01 k/cumm (0.0-0.09); Absolute Basophil Count 0.04 k/cumm (0.0-0.2); Absolute Eosinophil Count 0.24 k/cumm (0.0-0.7); Absolute Lymphocyte Count 1.71 k/cumm (1.2-3.4); Absolute Monocyte Count 0.67 k/cumm (0.11-0.7); Absolute Neutrophil Count 4.88 k/cumm (1.2-6.7); Basophils % 0.5; Eosinophils % 3.2; HCT 36.1 % (36.0-46.0); HGB 12.1 g/dL (12.0-15.5); Immature Grans % 0.1; Lymphocytes % 22.6; Mean Corp. HGB Concentration 33.5 g/dL (32.0-36.0); Mean Corpuscular Hemoglobin 30.8 pg (27.0-33.0); Mean Corpuscular Volume 91.9 fL (80-95); Mean Platelet Volume 9.5 fL (8.0-11.0); Monocytes % 8.9; Neutrophils % 64.7; Platelet Count 263 x1000/uL (130-400); RBC 3.93 m/cumm (4.00-5.20); White Blood Cell Count 7.55 k/cumm (4.4-10.8)
[2019-06-05 08:52] LABS: ALT 21 U/L (12-78); AST 9 U/L (15-37); Albumin 3.3 g/dL (3.4-5.0); Alkaline Phosphatase 101 U/L (46-116); Anion Gap 7.9 mmol/L (3-11); BUN 18 mg/dL (7-18); Bilirubin, Total 0.8 mg/dL (0.2-1.0); CO2 28.1 mmol/L (21.0-32.0); CREATININE 1.09 mg/dL (0.55-1.02); Calcium 9.6 mg/dL (8.5-10.1); Chloride 103 mmol/L (98-107); Estimated GFR 49.48 (mL/min/1.73m2); Glucose 158 mg/dL (70-100); Sodium 139 mmol/L (136-145); Total Protein 6.8 g/dL (6.4-8.2)
== END 2019-06-27 23:59 | disposition home or self-care (01) ==
LOC: INF 01:43
PROVIDERS: Visit Provider Internal Medicine
DX: C50.912 Malignant neoplasm of unspecified site of left female breast (principal); Z45.2 Encounter for adjustment and management of vascular access device
CPT/HCPCS: 36591; 80053; 85025

== ENCOUNTER 2019-06-26 01:26 | Outpatient (RCR) | payer MEDICARE, SELFPAY ==
[2019-06-26 12:21] LABS: Abs Immature Grans 0.02 k/cumm (0.0-0.09); Absolute Basophil Count 0.03 k/cumm (0.0-0.2); Absolute Lymphocyte Count 1.97 k/cumm (1.2-3.4); Absolute Neutrophil Count 5.59 k/cumm (1.2-6.7); Basophils % 0.4; Eosinophils % 2.4; HGB 11.8 g/dL (12.0-15.5); Immature Grans % 0.2; Lymphocytes % 23.4; Mean Corp. HGB Concentration 32.8 g/dL (32.0-36.0); Mean Corpuscular Hemoglobin 30.3 pg (27.0-33.0); Mean Corpuscular Volume 92.3 fL (80-95); Mean Platelet Volume 9.3 fL (8.0-11.0); Monocytes % 7.1; Neutrophils % 66.5; Platelet Count 261 x1000/uL (130-400); RBC Distribution Width 13.3 % (11.7-14.6); White Blood Cell Count 8.41 k/cumm (4.4-10.8)
[2019-06-26 12:39] LABS: ALT 31 U/L (12-78); AST 11 U/L (15-37); Albumin 3.2 g/dL (3.4-5.0); Alkaline Phosphatase 101 U/L (46-116); Anion Gap 10.1 mmol/L (3-11); BUN 22 mg/dL (7-18); Bilirubin, Total 0.9 mg/dL (0.2-1.0); CO2 25.9 mmol/L (21.0-32.0); CREATININE 0.92 mg/dL (0.55-1.02); Calcium 9.2 mg/dL (8.5-10.1); Chloride 100 mmol/L (98-107); Glucose 107 mg/dL (70-100); Potassium 4.1 mmol/L (3.5-5.1); Sodium 136 mmol/L (136-145); Total Protein 6.8 g/dL (6.4-8.2)
[2019-06-26] MEDS: Normal Saline Flush 10 ML SYR IVP (13:47)
== END 2019-06-27 23:59 | disposition home or self-care (01) ==
LOC: INF 01:26
PROVIDERS: Visit Provider Internal Medicine
DX: C50.912 Malignant neoplasm of unspecified site of left female breast (principal); Z45.2 Encounter for adjustment and management of vascular access device
CPT/HCPCS: 36591; 80053; 85025

== ENCOUNTER 2019-07-24 08:40 | Outpatient (RCR) | payer MEDICARE, SELFPAY ==
[2019-07-24 08:57] LABS: Abs Immature Grans 0.02 k/cumm (0.0-0.09); Absolute Basophil Count 0.03 k/cumm (0.0-0.2); Absolute Lymphocyte Count 1.75 k/cumm (1.2-3.4); Absolute Monocyte Count 0.63 k/cumm (0.11-0.7); Absolute Neutrophil Count 5.52 k/cumm (1.2-6.7); Basophils % 0.4; Eosinophils % 2.5; HCT 35.5 % (36.0-46.0); HGB 11.8 g/dL (12.0-15.5); Immature Grans % 0.2; Lymphocytes % 21.5; Mean Corp. HGB Concentration 33.2 g/dL (32.0-36.0); Mean Corpuscular Hemoglobin 30.8 pg (27.0-33.0); Mean Corpuscular Volume 92.7 fL (80-95); Mean Platelet Volume 9.2 fL (8.0-11.0); Monocytes % 7.7; Neutrophils % 67.7; Platelet Count 299 x1000/uL (130-400); RBC 3.83 m/cumm (4.00-5.20); RBC Distribution Width 13.2 % (11.7-14.6); White Blood Cell Count 8.15 k/cumm (4.4-10.8)
[2019-07-24 09:11] LABS: ALT 32 U/L (14-59); AST 16 U/L (15-37); Albumin 3.1 g/dL (3.4-5.0); Alkaline Phosphatase 97 U/L (46-116); Anion Gap 8.4 mmol/L (3-11); BUN 24 mg/dL (7-18); Bilirubin, Total 0.6 mg/dL (0.2-1.0); CO2 27.6 mmol/L (21.0-32.0); CREATININE 1.07 mg/dL (0.55-1.02); Calcium 9.2 mg/dL (8.5-10.1); Chloride 104 mmol/L (98-107); Estimated GFR 50.55 (mL/min/1.73m2); Glucose 162 mg/dL (70-100); Potassium 4.1 mmol/L (3.5-5.1); Sodium 140 mmol/L (136-145); Total Protein 6.7 g/dL (6.4-8.2)
[2019-07-24] MEDS: Normal Saline Flush 10 ML SYR IVP (09:36)
[2019-07-24] MEDS: Heparin 500 UNITS/5 ML SYRINGE IVP (09:38)
== END 2019-07-28 23:59 | disposition home or self-care (01) ==
LOC: INF 08:40
PROVIDERS: Visit Provider Internal Medicine
DX: C50.912 Malignant neoplasm of unspecified site of left female breast (principal); Z45.2 Encounter for adjustment and management of vascular access device
CPT/HCPCS: 36591; 80053; 85025

== ENCOUNTER 2019-10-23 13:22 | Outpatient (CLI) | payer MEDICARE, SELFPAY ==
[2019-10-23 13:43] LABS: Abs Immature Grans 0.01 k/cumm (0.0-0.09); Absolute Basophil Count 0.04 k/cumm (0.0-0.2); Absolute Eosinophil Count 0.15 k/cumm (0.0-0.7); Absolute Lymphocyte Count 2.23 k/cumm (1.2-3.4); Absolute Monocyte Count 0.71 k/cumm (0.11-0.7); Absolute Neutrophil Count 7.57 k/cumm (1.2-6.7); Basophils % 0.4; Eosinophils % 1.4; HCT 35.2 % (36.0-46.0); HGB 11.6 g/dL (12.0-15.5); Immature Grans % 0.1; Lymphocytes % 20.8; Mean Corpuscular Hemoglobin 30.1 pg (27.0-33.0); Mean Corpuscular Volume 91.4 fL (80-95); Mean Platelet Volume 8.8 fL (8.0-11.0); Monocytes % 6.6; Neutrophils % 70.7; Platelet Count 341 x1000/uL (130-400); RBC 3.85 m/cumm (4.00-5.20); RBC Distribution Width 13.8 % (11.7-14.6); White Blood Cell Count 10.71 k/cumm (4.4-10.8)
[2019-10-23 14:23] LABS: ALT 24 U/L (14-59); AST 14 U/L (15-37); Albumin 2.3 g/dL (3.4-5.0); Alkaline Phosphatase 69 U/L (46-116); Anion Gap 10.5 mmol/L (3-11); BUN 17 mg/dL (7-18); Bilirubin, Total 0.5 mg/dL (0.2-1.0); CO2 23.5 mmol/L (21.0-32.0); CREATININE 0.75 mg/dL (0.55-1.02); Calcium 8.5 mg/dL (8.5-10.1); Chloride 104 mmol/L (98-107); Glucose 132 mg/dL (74-106); Potassium 3.5 mmol/L (3.5-5.1); Sodium 138 mmol/L (136-145); Total Protein 5.3 g/dL (6.4-8.2)
== END 2019-10-23 13:42 ==
PROVIDERS: PCP Nurse Practitioner Family; Visit Provider Internal Medicine
DX: C50.912 Malignant neoplasm of unspecified site of left female breast (principal)
CPT/HCPCS: 36415; 80053; 85025

== ENCOUNTER 2020-01-22 02:16 | Outpatient (RCR) | payer MEDICARE, SELFPAY | END 2020-01-26 23:59 | disposition home or self-care (01) | LOC: INF 02:16 | PROVIDERS: PCP Nurse Practitioner Family; Visit Provider Internal Medicine | DX: R69 Illness, unspecified (principal) ==

== ENCOUNTER 2020-01-22 12:15 | Outpatient (CLI) | payer MEDICARE, SELFPAY ==
[2020-01-22 12:30] LABS: Abs Immature Grans 0.02 k/cumm (0.0-0.09); Absolute Basophil Count 0.03 k/cumm (0.0-0.2); Absolute Eosinophil Count 0.17 k/cumm (0.0-0.7); Absolute Lymphocyte Count 1.68 k/cumm (1.2-3.4); Absolute Monocyte Count 0.65 k/cumm (0.11-0.7); Absolute Neutrophil Count 5.79 k/cumm (1.2-6.7); Basophils % 0.4; HCT 36.3 % (36.0-46.0); HGB 11.9 g/dL (12.0-15.5); Immature Grans % 0.2 %; Lymphocytes % 20.1; Mean Corp. HGB Concentration 32.8 g/dL (32.0-36.0); Mean Corpuscular Hemoglobin 30.3 pg (27.0-33.0); Mean Corpuscular Volume 92.4 fL (80-95); Monocytes % 7.8; Neutrophils % 69.5; Platelet Count 334 x1000/uL (130-400); RBC 3.93 m/cumm (4.00-5.20); RBC Distribution Width 13.9 % (11.7-14.6); White Blood Cell Count 8.34 k/cumm (4.4-10.8)
[2020-01-22 12:45] LABS: ALT 22 U/L (14-59); AST 15 U/L (15-37); Albumin 2.8 g/dL (3.4-5.0); Alkaline Phosphatase 85 U/L (46-116); BUN 18 mg/dL (7-18); Bilirubin, Total 0.6 mg/dL (0.2-1.0); CREATININE 1.09 mg/dL (0.55-1.02); Chloride 106 mmol/L (98-107); Estimated GFR 49.34 (mL/min/1.73m2); Glucose 152 mg/dL (74-106); Potassium 3.8 mmol/L (3.5-5.1); Sodium 142 mmol/L (136-145); Total Protein 5.9 g/dL (6.4-8.2)
== END 2020-01-22 12:35 ==
PROVIDERS: PCP Nurse Practitioner Family; Visit Provider Internal Medicine
DX: C50.912 Malignant neoplasm of unspecified site of left female breast (principal)
CPT/HCPCS: 36415; 80053; 85025

== ENCOUNTER 2020-06-24 13:48 | Outpatient (RCR) | payer MEDICARE, SELFPAY ==
[2020-06-24 14:16] LABS: Abs Immature Grans 0.04 10^3/uL (0.0-0.06); Absolute Basophil Count 0.03 10^3/uL (0.0-0.2); Absolute Lymphocyte Count 1.73 10^3/uL (1.2-3.4); Absolute Monocyte Count 0.58 10^3/uL (0.1-0.8); Absolute Neutrophil Count 5.37 10^3/uL (1.2-6.7); Basophils % 0.4; Eosinophils % 2.5; HCT 33.2 % (36.0-46.0); Immature Grans % 0.5; Lymphocytes % 21.8; MCHC 33.1 % (32.0-36.0); MCV 90.5 fL (80-95); MPV 9.7 fL (8.0-11.0); Monocytes % 7.3; Neutrophils % 67.5; Platelet Count 282 10^3/uL (130-400); RBC 3.67 10^6/uL (3.93-5.22); RDW 13.1 % (11.7-14.6); WBC 7.95 10^3/uL (4.4-10.8)
[2020-06-24 14:21] LABS: ALT 18 U/L (14-59); AST 12 U/L (15-37); Albumin 3.1 g/dL (3.4-5.0); Alkaline Phosphatase 92 U/L (46-116); Anion Gap 8.7 mmol/L (3-11); BUN 24 mg/dL (7-18); Bilirubin, Total 0.7 mg/dL (0.2-1.0); CO2 25.3 mmol/L (21.0-32.0); CREATININE 1.13 mg/dL (0.55-1.02); Calcium 9.6 mg/dL (8.5-10.1); Chloride 103 mmol/L (98-107); Estimated GFR 47.33 (mL/min/1.73m2); Glucose 121 mg/dL (74-106); Potassium 4.1 mmol/L (3.5-5.1); Sodium 137 mmol/L (136-145); Total Protein 6.5 g/dL (6.4-8.2)
[2020-06-26 12:48] LABS: Ferritin 21 ng/mL (8-252)
[2020-06-26 13:15] LABS: Iron 55 ug/dL (50-170); Total Iron Binding Capacity 303 ug/dL (250-450); Transferrin Sat 18 % (15-50)
== END 2020-06-27 23:59 | disposition home or self-care (01) ==
LOC: INF 13:48
PROVIDERS: PCP Nurse Practitioner Family; Visit Provider Internal Medicine
DX: D64.9 Anemia, unspecified (principal); C50.912 Malignant neoplasm of unspecified site of left female breast
CPT/HCPCS: 36415; 80053; 82728; 83540; 83550; 85025

== ENCOUNTER 2020-12-23 03:44 | Outpatient (CLI) | payer MEDICARE, SELFPAY ==
[2020-12-23 10:01] LABS: Abs Immature Grans 0.02 10^3/uL (0.0-0.06); Absolute Basophil Count 0.04 10^3/uL (0.0-0.2); Absolute Eosinophil Count 0.17 10^3/uL (0.0-0.7); Absolute Monocyte Count 0.58 10^3/uL (0.1-0.8); Basophils % 0.5; Eosinophils % 2.3; HCT 36.4 % (36.0-46.0); Immature Grans % 0.3; Lymphocytes % 21.6; MCH 30.5 pg (27.0-33.0); MCV 92.4 fL (80-95); MPV 9.3 fL (8.0-11.0); Monocytes % 7.8; Neutrophils % 67.5; Nucleated RBC 0 %; Platelet Count 261 10^3/uL (130-400); RBC 3.94 10^6/uL (3.93-5.22); RDW 12.6 % (11.7-14.6); RDW-SD 42.8 fL; WBC 7.41 10^3/uL (4.4-10.8)
[2020-12-23 10:22] LABS: ALT 18 U/L (14-59); AST 13 U/L (15-37); Albumin 2.9 g/dL (3.4-5.0); Alkaline Phosphatase 87 U/L (46-116); Anion Gap 6.1 mmol/L (3-11); BUN 22 mg/dL (7-18); Bilirubin, Total 0.7 mg/dL (0.2-1.0); CO2 27.9 mmol/L (21.0-32.0); CREATININE 1.01 mg/dL (0.55-1.02); Chloride 101 mmol/L (98-107); Estimated GFR 53.73 (mL/min/1.73m2); Glucose 211 mg/dL (74-106); Potassium 3.8 mmol/L (3.5-5.1); Sodium 135 mmol/L (136-145); Total Protein 6.1 g/dL (6.4-8.2)
[2020-12-23 10:26] LABS: Calcium 9.3 mg/dL (8.5-10.1)
== END 2020-12-23 04:04 ==
PROVIDERS: PCP Nurse Practitioner Family; Visit Provider Internal Medicine
DX: C50.912 Malignant neoplasm of unspecified site of left female breast (principal)
CPT/HCPCS: 80053; 85025

== ENCOUNTER 2021-06-17 03:03 | Outpatient (CLI) | payer MEDICARE, SELFPAY ==
[2021-06-17 12:11] LABS: Abs Immature Grans 0.02 10^3/uL (0.0-0.06); Absolute Basophil Count 0.05 10^3/uL (0.0-0.2); Absolute Eosinophil Count 0.22 10^3/uL (0.0-0.7); Absolute Lymphocyte Count 2.25 10^3/uL (1.2-3.4); Absolute Monocyte Count 0.66 10^3/uL (0.1-0.8); Absolute Neutrophil Count 5.49 10^3/uL (1.2-6.7); Basophils % 0.6; Eosinophils % 2.5; HCT 36.1 % (36.0-46.0); Immature Grans % 0.2; Lymphocytes % 25.9; MCH 30.5 pg (27.0-33.0); MCHC 33.2 % (32.0-36.0); MCV 91.6 fL (80-95); MPV 9.3 fL (8.0-11.0); Monocytes % 7.6; Neutrophils % 63.2; Nucleated RBC 0 %; Platelet Count 271 10^3/uL (130-400); RBC 3.94 10^6/uL (3.93-5.22); RDW 12.6 % (11.7-14.6); RDW-SD 42.6 fL; WBC 8.69 10^3/uL (4.4-10.8)
[2021-06-17 12:25] LABS: ALT 18 U/L (14-59); AST 11 U/L (15-37); Albumin 3.1 g/dL (3.4-5.0); Alkaline Phosphatase 102 U/L (46-116); Anion Gap 6.9 mmol/L (3-11); BUN 22 mg/dL (7-18); Bilirubin, Total 0.9 mg/dL (0.2-1.0); CO2 28.1 mmol/L (21.0-32.0); CREATININE 1.1 mg/dL (0.55-1.02); Calcium 9.5 mg/dL (8.5-10.1); Chloride 107 mmol/L (98-107); Estimated GFR 48.69 (mL/min/1.73m2); Glucose 162 mg/dL (74-106); Sodium 142 mmol/L (136-145); Total Protein 6.5 g/dL (6.4-8.2)
== END 2021-06-17 03:04 | disposition home or self-care (01) ==
LOC: LBO 03:03
PROVIDERS: Nurse Practitioner Adult Health; PCP Nurse Practitioner Family; Visit Provider Internal Medicine
DX: C50.011 Malignant neoplasm of nipple and areola, right female breast (principal)
CPT/HCPCS: 36415; 80053; 85025

== ENCOUNTER 2021-12-09 03:09 | Outpatient (CLI) | payer MEDICARE, SELFPAY ==
[2021-12-09 10:38] LABS: Abs Immature Grans 0.02 10^3/uL (0.0-0.06); Absolute Basophil Count 0.04 10^3/uL (0.0-0.2); Absolute Eosinophil Count 0.11 10^3/uL (0.0-0.7); Absolute Lymphocyte Count 1.53 10^3/uL (1.2-3.4); Absolute Monocyte Count 0.57 10^3/uL (0.1-0.8); Absolute Neutrophil Count 4.69 10^3/uL (1.2-6.7); Basophils % 0.6; Eosinophils % 1.6; HCT 35.4 % (36.0-46.0); HGB 11.7 g/dL (11.2-15.7); Immature Grans % 0.3; MCHC 33.1 % (32.0-36.0); MCV 93.7 fL (80-95); MPV 9.1 fL (8.0-11.0); Monocytes % 8.2; Neutrophils % 67.3; Nucleated RBC 0 %; Platelet Count 238 10^3/uL (130-400); RBC 3.78 10^6/uL (3.93-5.22); RDW 12.5 % (11.7-14.6); RDW-SD 43.5 fL; WBC 6.96 10^3/uL (4.4-10.8)
[2021-12-09 10:57] LABS: ALT 21 U/L (14-59); AST 14 U/L (15-37); Albumin 2.9 g/dL (3.4-5.0); Alkaline Phosphatase 87 U/L (46-116); Anion Gap 6.4 mmol/L (3-11); BUN 18 mg/dL (7-18); Bilirubin, Total 1.1 mg/dL (0.2-1.0); CO2 29.6 mmol/L (21.0-32.0); CREATININE 1.1 mg/dL (0.55-1.02); Calcium 9.1 mg/dL (8.5-10.1); Chloride 102 mmol/L (98-107); Estimated GFR 48.69 (mL/min/1.73m2); Glucose 220 mg/dL (74-106); Sodium 138 mmol/L (136-145); Total Protein 6.1 g/dL (6.4-8.2)
== END 2021-12-09 03:10 | disposition home or self-care (01) ==
LOC: LBO 03:09
PROVIDERS: Nurse Practitioner Adult Health; PCP Nurse Practitioner Family; Visit Provider Internal Medicine
DX: C50.011 Malignant neoplasm of nipple and areola, right female breast (principal)
CPT/HCPCS: 36415; 80053; 85025

== ENCOUNTER 2022-06-22 04:08 | Outpatient (CLI) | payer MEDICARE, SELFPAY ==
[2022-06-22 12:18] LABS: Abs Immature Grans 0.03 10^3/uL (0.0-0.06); Absolute Basophil Count 0.06 10^3/uL (0.0-0.2); Absolute Eosinophil Count 0.29 10^3/uL (0.0-0.7); Absolute Lymphocyte Count 2.34 10^3/uL (1.2-3.4); Absolute Monocyte Count 0.69 10^3/uL (0.1-0.8); Absolute Neutrophil Count 5.64 10^3/uL (1.2-6.7); Basophils % 0.7; Eosinophils % 3.2; HCT 35.6 % (36.0-46.0); HGB 11.9 g/dL (11.2-15.7); Immature Grans % 0.3; Lymphocytes % 25.9; MCH 31.2 pg (27.0-33.0); MCHC 33.4 % (32.0-36.0); MCV 93 fL (80-95); MPV 9.4 fL (8.0-11.0); Monocytes % 7.6; Neutrophils % 62.3; Platelet Count 240 10^3/uL (130-400); RBC 3.82 10^6/uL (3.93-5.22); RDW 12.7 % (11.7-14.6); RDW-SD 43.4 fL; WBC 9.05 10^3/uL (4.4-10.8)
[2022-06-22 12:52] LABS: ALT 23 U/L (14-59); AST 15 U/L (15-37); Albumin 3.2 g/dL (3.4-5.0); Alkaline Phosphatase 94 U/L (46-116); Anion Gap 8.3 mmol/L (3-11); BUN 19 mg/dL (7-18); Bilirubin, Total 0.9 mg/dL (0.2-1.0); CO2 26.7 mmol/L (21.0-32.0); Calcium 9.2 mg/dL (8.5-10.1); Chloride 101 mmol/L (98-107); Glucose 128 mg/dL (74-106); Potassium 3.4 mmol/L (3.5-5.1); Sodium 136 mmol/L (136-145); Total Protein 6.6 g/dL (6.4-8.2)
== END 2022-06-22 04:09 | disposition home or self-care (01) ==
LOC: LBO 04:08
PROVIDERS: PCP Nurse Practitioner Family; Visit Provider Internal Medicine
DX: C50.111 Malignant neoplasm of central portion of right female breast (principal); Z79.811 Long term (current) use of aromatase inhibitors; M85.80 Other specified disorders of bone density and structure, unspecified site
CPT/HCPCS: 36415; 80053; 85025

== ENCOUNTER 2023-03-15 10:40 | Outpatient (CLI) | payer MEDICARE, SELFPAY ==
[2023-03-15 09:38] LABS: Abs Immature Grans 0.02 10^3/uL (0.0-0.06); Absolute Basophil Count 0.05 10^3/uL (0.0-0.2); Absolute Eosinophil Count 0.21 10^3/uL (0.0-0.7); Absolute Lymphocyte Count 1.59 10^3/uL (1.2-3.4); Absolute Monocyte Count 0.59 10^3/uL (0.1-0.8); Absolute Neutrophil Count 4.79 10^3/uL (1.2-6.7); Basophils % 0.7; Eosinophils % 2.9; HCT 36.4 % (36.0-46.0); HGB 12.4 g/dL (11.2-15.7); Immature Grans % 0.3; Lymphocytes % 21.9; MCH 31.6 pg (27.0-33.0); MCHC 34.1 % (32.0-36.0); MCV 93 fL (80-95); MPV 8.9 fL (8.0-11.0); Monocytes % 8.1; Neutrophils % 66.1; Platelet Count 233 10^3/uL (130-400); RBC 3.92 10^6/uL (3.93-5.22); RDW 12.9 % (11.7-14.6); RDW-SD 43.8 fL; WBC 7.25 10^3/uL (4.4-10.8)
[2023-03-15 09:54] LABS: ALT 22 U/L (14-59); AST 14 U/L (15-37); Albumin 3.2 g/dL (3.4-5.0); Alkaline Phosphatase 90 U/L (46-116); Anion Gap 6.3 mmol/L (3-11); BUN 22 mg/dL (7-18); CO2 29.7 mmol/L (21.0-32.0); CREATININE 1.1 mg/dL (0.55-1.02); Calcium 9.7 mg/dL (8.5-10.1); Chloride 106 mmol/L (98-107); Glucose 154 mg/dL (74-106); Potassium 3.9 mmol/L (3.5-5.1); Sodium 142 mmol/L (136-145); Total Protein 6.5 g/dL (6.4-8.2)
== END 2023-03-15 10:41 | disposition home or self-care (01) ==
LOC: LBO 10:41
PROVIDERS: PCP Nurse Practitioner Family; Visit Provider Nurse Practitioner Family
DX: C50.011 Malignant neoplasm of nipple and areola, right female breast (principal)
CPT/HCPCS: 36415; 80053; 85025

== ENCOUNTER 2023-09-20 02:50 | Outpatient (CLI) | payer MEDICARE, SELFPAY ==
[2023-09-20 14:04] LABS: Abs Immature Grans 0.03 10^3/uL (0.0-0.06); Absolute Basophil Count 0.05 10^3/uL (0.0-0.2); Absolute Eosinophil Count 0.16 10^3/uL (0.0-0.7); Absolute Lymphocyte Count 2.36 10^3/uL (1.2-3.4); Absolute Monocyte Count 0.52 10^3/uL (0.1-0.8); Absolute Neutrophil Count 4.92 10^3/uL (1.2-6.7); Basophils % 0.6; HCT 38.3 % (36.0-46.0); HGB 12.8 g/dL (11.2-15.7); Immature Grans % 0.4; Lymphocytes % 29.4; MCH 31.2 pg (27.0-33.0); MCHC 33.4 % (32.0-36.0); MCV 93 fL (80-95); MPV 9.1 fL (8.0-11.0); Monocytes % 6.5; Neutrophils % 61.1; Platelet Count 249 10^3/uL (130-400); RDW 12.7 % (11.7-14.6); RDW-SD 43.5 fL; WBC 8.04 10^3/uL (4.4-10.8)
[2023-09-20 14:25] LABS: ALT 24 U/L (14-59); AST 13 U/L (15-37); Albumin 3.2 g/dL (3.4-5.0); Alkaline Phosphatase 89 U/L (46-116); Anion Gap 8.5 mmol/L (3-11); BUN 22 mg/dL (7-18); Bilirubin, Total 0.8 mg/dL (0.2-1.0); CO2 27.5 mmol/L (21.0-32.0); CREATININE 1.2 mg/dL (0.55-1.02); Calcium 9.7 mg/dL (8.5-10.1); Chloride 103 mmol/L (98-107); Estimated GFR 47.21 (mL/min/1.73m2); Glucose 201 mg/dL (74-106); Potassium 3.6 mmol/L (3.5-5.1); Sodium 139 mmol/L (136-145); Total Protein 6.6 g/dL (6.4-8.2)
== END 2023-09-20 02:51 | disposition home or self-care (01) ==
LOC: LBO 02:50
PROVIDERS: PCP Nurse Practitioner Family; Visit Provider Internal Medicine
DX: C50.011 Malignant neoplasm of nipple and areola, right female breast (principal)
CPT/HCPCS: 36415; 80053; 85025

== ENCOUNTER 2024-03-06 04:32 | Outpatient (CLI) | payer MEDICARE, SELFPAY ==
[2024-03-06 10:44] LABS: Abs Immature Grans 0.03 10^3/uL (0.0-0.06); Absolute Basophil Count 0.06 10^3/uL (0.0-0.2); Absolute Eosinophil Count 0.24 10^3/uL (0.0-0.7); Absolute Lymphocyte Count 2.21 10^3/uL (1.2-3.4); Absolute Monocyte Count 0.63 10^3/uL (0.1-0.8); Basophils % 0.8; HCT 37.5 % (36.0-46.0); HGB 12.7 g/dL (11.2-15.7); Immature Grans % 0.4; Lymphocytes % 27.7; MCH 31.7 pg (27.0-33.0); MCHC 33.9 % (32.0-36.0); MCV 94 fL (80-95); MPV 9.2 fL (8.0-11.0); Monocytes % 7.9; Neutrophils % 60.2; Platelet Count 229 10^3/uL (130-400); RBC 4.01 10^6/uL (3.93-5.22); RDW 12.5 % (11.7-14.6); WBC 7.97 10^3/uL (4.4-10.8)
[2024-03-06 11:08] LABS: ALT 22 U/L (14-59); AST 14 U/L (15-37); Albumin 3.2 g/dL (3.4-5.0); Alkaline Phosphatase 91 U/L (46-116); Anion Gap 9.3 mmol/L (3-11); BUN 20 mg/dL (7-18); CO2 26.7 mmol/L (21.0-32.0); CREATININE 1.1 mg/dL (0.55-1.02); Calcium 9.5 mg/dL (8.5-10.1); Chloride 103 mmol/L (98-107); Estimated GFR 52.08 (mL/min/1.73m2); Glucose 169 mg/dL (74-106); Potassium 3.9 mmol/L (3.5-5.1); Sodium 139 mmol/L (136-145); Total Protein 6.5 g/dL (6.4-8.2)
== END 2024-03-06 04:33 | disposition home or self-care (01) ==
LOC: LBO 04:32
PROVIDERS: PCP Nurse Practitioner Family; Visit Provider Internal Medicine
DX: C50.011 Malignant neoplasm of nipple and areola, right female breast (principal)
CPT/HCPCS: 36415; 80053; 85025